=== PATIENT | female | born 1945 | race Caucasian/White ===

== ENCOUNTER 2017-03-12 11:24 | Day surgery (SDC) | payer MEDICARE, BC ==
[~2017-03-12 11:24] MED LIST: Buffered Lidocaine 0.9% SYRIN* 5 ML/SYR SYRINGE INTRADERM ONE; Famotidine IV* 10 MG/ML 2 ML (20 mg) IV ONE
[2017-03-12] MEDS ORDERED: Famotidine IV* 10 MG/ML 2 ML (20 mg) ONE (11:30)
[2017-03-12] MEDS ORDERED: Buffered Lidocaine 0.9% SYRIN* 5 ML/SYR SYRINGE ONE (11:30)
[2017-03-12] MEDS ORDERED: Midazolam* 1 MG/ML 2 ML VIAL (2 MG) ONE ×2 (13:25→13:47)
[2017-03-12] MEDS ORDERED: fentaNYL* 50 MCG/ML 2 ML VIAL (100 MCG VIAL) ONE (13:26)
[2017-03-12] MEDS ORDERED: Propofol* 10 MG/ML 20 ML BTL IV PUSH ONE ×2 (13:47→14:08)
[2017-03-12] MEDS ORDERED: Naloxone* 0.4 MG/ML 1 ML VIAL IV PRN (14:09)
[2017-03-12 15:03] VITALS: BP 142/65
--- NOTE | 2017-03-13 14:11 | PRO ---
DATE: 03/12/17 [facility] REFERRING PHYSICIAN: Dr. Adryan Carrasco * PROCEDURE: Upper gastrointestinal endoscopy and CLOtest and balloon dilation EG junction to 36 cm to 2 atmospheres and a 15 to 18 mm balloon. INDICATION: This 71-year-old woman comes in with a complaint of esophageal dysphagia. She also has trouble with pills, especially potassium and vitamins. It has gone on for many years. She does not spontaneously complain of acid indigestion or heart burn, and when questioned, there is some minimal irritation feeling, but she has never been on any acid blockade. She has been evaluated with anesthesia because of extraordinary anxiety. ENDOSCOPIST: Dr. Figueroa. EGD: Larynx - symmetric, limited views. Esophagus - easily entered. The mucosa is normal in the upper and mid esophagus and in the lower esophagus is a minimal dry mucoid or cakey material on it. There appears to be a little bit of edema from about 34 to 37. There was not any defined hiatal hernia until beyond 37 where there is a very short hiatal hernia. The EG junction does not show any erosions or Guerra's change. Stomach - Generally normal mucosa in the cardia, fundus, body, and antrum. No abnormalities are seen. Duodenum - normal up to 35 cm. Withdrawing to the EG junction, a balloon was placed in the gastric fundus 15 to 18 mm and then withdrawn across the EG junction and inflated to 1 atmosphere initially. This did create a slight rent at an 8 to 9 o'clock orientation with a little bit of bleeding. A 2 atmosphere inflation slightly extended that. It appeared indicated to stop at that time. There were no additional findings in the cricopharyngeal area. IMPRESSION: 1. Small hiatal hernia. 2. Esophagogastric junction stricture - uncertain contributions from gastroesophageal reflux disease versus salivary deficit versus caustic effect from inattention in swallowing, especially pills. She will be placed on omeprazole 20 mg q.a.m and review progress and options in a month. Changing to a liquid or a powder potassium formulation and for vitamins may be helpful as a caustic contribution of this is very likely. [id number]/[facility] #: [id number] MTDD
== END 2017-03-12 15:06 | disposition home or self-care (01) ==
LOC: OR 11:24
PROVIDERS: ATTEND Internal Medicine Gastroenterology
DX: K22.2 Esophageal obstruction (principal); K44.9 Diaphragmatic hernia without obstruction or gangrene; R13.14 Dysphagia, pharyngoesophageal phase; F41.8 Other specified anxiety disorders
CPT/HCPCS: 87077; J2250; J2704; J3010

== ENCOUNTER 2017-03-30 08:45 | Day surgery (SDC) | payer MEDICARE, BC ==
[~2017-03-30 08:45] MED LIST changes: +Acetaminophen TAB* 325 MG PO PRN; +Cyclopentolate 1% OPTH.SOL* 2 ML BTL ONE; -Famotidine IV* 10 MG/ML 2 ML (20 mg) IV ONE; +Ketorolac 0.5% OPHTH (NF) 0.5 % 5 ML BTL ONE; +Lidocaine 1% MPF* 2 ML VIAL ONE; +Neomycin/Polymy/Dex OPHTH.OIN* 3.5 GM ONE; +Phenylephrine 2.5% OPTH.SOL* 2 ML BTL ONE; +Tetracaine 0.5% OPTH.SOL 4 ML* 1 DROP BTL ONE; +Tropicamide 1% OPTH.SOL* BTL ONE
[2017-03-30] MEDS ORDERED: Midazolam* 1 MG/ML 2 ML VIAL (2 MG) ONE (09:43)
[2017-03-30] MEDS ORDERED: fentaNYL* 50 MCG/ML 2 ML VIAL (100 MCG VIAL) ONE (09:43)
[2017-03-30 10:45] VITALS: BP 155/81
--- NOTE | 2017-03-31 00:59 | OP ---
DATE OF OPERATION: 03/30/17 [facility] DATE OF : 47 SURGEON: Dr. Pierre Quiroga. EDUCATIONAL TECHNOLOGY SPECIALIST: None. ANESTHESIA: Topical with intravenous sedation. PRE-OP DIAGNOSIS: Cataract, left eye. POST-OP DIAGNOSIS: Cataract, left eye. OPERATIVE PROCEDURE: Phacoemulsification and cataract extraction with posterior chamber intraocular lens implant, left eye. COMPLICATIONS: None. BLOOD LOSS: None. DESCRIPTION OF PROCEDURE: The patient was brought to the operating room and received a small amount of intravenous sedation. A drop of Tetracaine was placed in her left eye. She was prepped and draped in the usual sterile fashion for ophthalmic surgery and attention was directed to the left eye where a speculum was placed. A paracentesis was created at the 5 o'clock position and 0.1 cc of 1 percent preservative-free Lidocaine was injected into the anterior chamber followed by DisCoVisc. The eye was digitally stabilized while a 2.75 mm keratome was used to create a triplanar clear corneal incision at the 3 o'clock position. A continuous curvilinear capsulorrhexis was created with a cystotome and Utrata forceps. BSS on a cannula was used to hydrodissect the lens from the capsule. Phacoemulsification was performed in a divide-and- conquer technique to create four fragments which were removed. Residual cortical material was removed with irrigation and aspiration. DisCoVisc was used to inflate the capsular bag and an [id number] 19.5 diopter lens was folded and inserted into the capsular bag. DisCoVisc was removed using irrigation and aspiration. BSS on a cannula was used to hydrate the corneal stroma and seal the wound. At the end of the case the pupil was round and the lens was centered. The eye was of normal pressure and the wound was water tight. The speculum was removed and topical Maxitrol ointment was placed on the surface of the eye. The eye was closed, patched and shielded and the patient was sent to the recovery room in stable condition with post operative instructions and follow-up appointment given. [id number]/[facility] #: [id number] DELICIA
== END 2017-03-30 10:53 | disposition home or self-care (01) ==
LOC: OREAST 08:45
PROVIDERS: ATTEND Ophthalmology
DX: H25.12 Age-related nuclear cataract, left eye (principal); I10 Essential (primary) hypertension; J45.909 Unspecified asthma, uncomplicated; E03.9 Hypothyroidism, unspecified; Z68.33 Body mass index [BMI] 33.0-33.9, adult; Z85.3 Personal history of malignant neoplasm of breast
CPT/HCPCS: A9270-GY; J2250; J3010; V2632

== ENCOUNTER 2018-04-23 00:02 | Emergency (ER) | payer MEDICARE, BC ==
--- NOTE | 2018-04-23 01:08 | ED ---
Lower Extremity - HPI Summary HPI Summary: A 72 y/o female brought in by CRISTIAN presents to [facility] with a chief complaint of left hip pain post fall on 04/20/18. At triage the patient rated her pain as a 6/10 in severity. The patient claims that before the night of 04/22/18 she was able to move around, but now she has limited mobility and her pain started when she leaned forward to move. She has a bruise on her left arm. She recently went to [facility] due to lightheadedness. She claims that she fell when she was going to the bathroom since she did not turn the lights on and hit her head, left arm and left hip. - History of Current Complaint Chief Complaint: EDHipPelvisInjury Stated Complaint: HIP PAIN Time Seen by Provider: 04/23/18 00:05 Hx Obtained From: Patient Hx Last Menstrual Period: post menopause Mechanism Of Injury: Fall From A Standing Position Onset of Pain: Immediate, Prior to Arrival Onset/Duration: Days Severity Initially: Mild Severity Currently: Moderate Pain Intensity: 6 Pain Scale Used: 0-10 Numeric Timing: Constant Location: Is Diffuse Character Of Pain: Unable To Describe Associated Signs And Symptoms: Positive: Bruising, Other - Fall hitting head, left arm and left hip Aggravating Factor(s): Nothing Alleviating Factor(s): Nothing - Allergies/Home Medications Allergies/Adverse Reactions: Allergies Allergy/AdvReac Type Severity Reaction Status Date / Time Penicillins Allergy Hives Verified 06/06/17 15:19 PMH/Surg Hx/FS Hx/Imm Hx Endocrine/Hematology History: Reports: Hx Thyroid Disease - Hypothyroid Denies: Hx Diabetes Cardiovascular History: Reports: Hx Hypercholesterolemia, Hx Hypertension Denies: Hx Pacemaker/ICD, Other Cardiovascular Problems/Disorders Respiratory History: Reports: Hx Asthma - on medication Denies: Other Respiratory Problems/Disorders GI History: Reports: Other GI Disorders - difficulty swallowing,certain foods cause difficulty eating, get stuck History: Denies: Hx Renal Disease, Other Problems/Disorders Musculoskeletal History: Reports: Hx Arthritis - osteoarthritis both hips and knees Denies: Hx Osteoporosis, Other Musculoskeletal History Sensory History: Reports: Hx Cataracts - Left eye, Hx Contacts or Glasses - Glasses Denies: Hx Hearing Aid Opthamlomology History: Reports: Hx Cataracts - Left eye, Hx Contacts or Glasses - Glasses Neurological History: Denies: Other Neuro Impairments/Disorders Psychiatric History: Reports: Hx Anxiety - ON MEDICATION, Hx Depression - ON MEDICATION Denies: Hx Panic Disorder - Cancer History Cancer Type, Location and Year: BREAST CANCER SURGERY-HAD SUREGERY AND RADIATION Hx Chemotherapy: Yes - 2011 Hx Radiation Therapy: Yes - Surgical History Surgery Procedure, Year, and Place: Lumpectomy with chemo and radiation - Rt BREAST 2011 [facility] [place] Tonsillectomy - 1971. CHOLECYSTECTOMY 1996 [facility] [place] Cataract - Right Eye 2009 [facility] [place]. Esophageal endoscopy 03/12/16 Hx Anesthesia Reactions: No Infectious Disease History: No Infectious Disease History: Denies: Hx Clostridium Difficile, Hx Hepatitis, Hx Human Immunodeficiency Virus (HIV), Hx of Known/Suspected MRSA, Hx Shingles, Hx Tuberculosis, Hx Known/ Suspected VRE, Hx Known/Suspected VRSA, History Other Infectious Disease, Traveled Outside the [place] in Last 30 Days - Family History Known Family History: Positive: Hypertension, Other - arthritis- mother - Social History Alcohol Use: None Substance Use Type: Reports: None Hx Tobacco Use: No Smoking Status (MU): Never Smoked Tobacco Have You Smoked in the Last Year: No Review of Systems Positive: Arthralgia - left hip pain, Myalgia - left arm pain Neurological: Other - positive: lightheadedness All Other Systems Reviewed And Are Negative: Yes Physical Exam - Summary Physical Exam Summary: Appearance: Well-appearing, Well-nourished, lying in bed comfortably Skin: Warm, dry, no obvious rash Eyes: sclera anicteric, no conjunctival pallor ENT: mucous membranes moist, pharynx appears normal Neck: Supple, nontender Respiratory: Clear to auscultation, no signs of respiratory distress Cardiovascular: Normal S1, S2. No murmurs. Normal distal pulses in tibial and radial bilaterally. Abdomen: Soft, nontender, normal active bowel sounds present Musculoskeletal: Head contusion left frontal temporal area with minimal swelling no laceration or abrasion, contusion left distal arm no tenderness swelling or deformity, left hip good ROM on rotation, pain left lower pelvic area near ischium, pelvis itself is stable. Neurological: A&Ox3, awake and alert, mentation is normal, speech is fluent and appropriate Psychiatric: affect is normal, does not appear anxious or depressed Triage Information Reviewed: Yes Vital Signs On Initial Exam: Initial Vitals Pulse Pulse Ox 95 96 04/23/18 00:07 04/23/18 00:07 Vital Signs Reviewed: Yes Diagnostics - Vital Signs Vital Signs Temp Pulse Resp BP Pulse Ox 04/23/18 00:10 98.7 F 74 20 193/95 99 04/23/18 00:08 99 193/95 96 04/23/18 00:07 95 96 - Laboratory Lab Statement: Any lab studies that have been ordered have been reviewed, and results considered in the medical decision making process. - CT pelvis CT Interpretation Completed By: Radiologist Summary of CT Findings: Osteopenia and moderate degenerative change without visualized fracture or. subluxation. In a small percentage of patients, MRI can document nondisplaced. fractures which are initially occult on CT. ED physician has reviewed this imaging report. Lower Extremity Course/Dx - Course Course Of Treatment: A 72 y/o female brought in by CRISTIAN presents to [facility] with a chief complaint of left hip pain post fall on 04/20/18. At triage the patient rated her pain as a 6/10 in severity. The patient claims that before the night of 04/22/18 she was able to move around, but now she has limited mobility and her pain started when she leaned forward to move. She has a bruise on her left arm. [facility]ness. She claims that she fell when she was going to the bathroom since she did not turn the lights on and hit her head, left arm and left hip. The physical exam revealed Head contusion left frontal temporal area with minimal swelling no laceration or abrasion, contusion left distal arm no tenderness swelling or deformity, left hip good ROM on rotation, pain left lower pelvic area near ischium, pelvis itself is stable. Pelvis CT impression: Osteopenia and moderate degenerative change without visualized fracture or. subluxation. In a small percentage of patients, MRI can document nondisplaced. fractures which are initially occult on CT. Upon re-eval the patient is able to ambulate. She will be discharged and is agreeable with this plan. - Diagnoses Provider Diagnoses: Low back pain Discharge - Sign-Out/Discharge Documenting (check all that apply): Patient Departure - DC Patient Received Moderate/Deep Sedation with Procedure: No - Discharge Plan Condition: Good Disposition: HOME Patient Education Materials: Low Back Strain (ED) Referrals: Anabel Smith MD [Primary Care Provider] - - Billing Disposition and Condition Condition: GOOD Disposition: Home - Attestation Statements Document Initiated by Jeancarlosibarley: Yes Documenting Scribe: Jarvis Álvarez Provider For Whom Inder is Documenting (Include Credential): Bradley Luna MD Scribe Attestation: IJarvis, scribed for Bradley Luna MD on 04/25/18 at 1611. Scribe Documentation Reviewed: Yes Provider Attestation: The documentation as recorded by the Jarvis beckett accurately reflects the service I personally performed and the decisions made by me, Bradley Luna MD Status of Scribe Document: Viewed
[2018-04-23 01:46] VITALS: BP 160/71
== END 2018-04-23 01:45 | disposition home or self-care (01) ==
LOC: ED 00:02
DX: M54.5 Low back pain (principal); M25.552 Pain in left hip; S00.83XA Contusion of other part of head, initial encounter; S50.12XA Contusion of left forearm, initial encounter; W18.30XA Fall on same level, unspecified, initial encounter; Y93.01 Activity, walking, marching and hiking; Y92.009 Unspecified place in unspecified non-institutional (private) residence as the place of occurrence of the external cause; M85.88 Other specified disorders of bone density and structure, other site; M16.12 Unilateral primary osteoarthritis, left hip; J45.909 Unspecified asthma, uncomplicated; F41.9 Anxiety disorder, unspecified; F32.9 Major depressive disorder, single episode, unspecified; Z88.0 Allergy status to penicillin
CPT/HCPCS: 72192; 99282

== ENCOUNTER 2019-02-18 07:10 | Emergency (ER) | payer MEDICARE, BC ==
[2019-02-18 07:23] VITALS: BP 174/91
--- NOTE | 2019-02-18 07:41 | UC ---
Ear Complaint HPI - HPI Summary HPI Summary: 73 yo woman with hx of hypertension and depression, with onset of right facial pain and swelling yesterday morning, without fever or chills of signs of systemic illness. This has become increasingly painful and has not responded to aspirin 975mg last taken about 8 hours ago. Last dental check 1 month ago with xrays, and given a clean bill of health. Hx of dry mouth secondary to meds, and known blocked submandibular gland over the past months. - History of Current Complaint Chief Complaint: UCEar Stated Complaint: EAR PAIN Time Seen by Provider: 02/18/19 07:30 Hx Obtained From: Patient Hx Last Menstrual Period: post menopause Onset/Duration: Gradual Onset, Lasting Days - 2 Severity Initially: Mild Severity Currently: Moderate Pain Intensity: 8 Alleviating Factors: OTC Meds Associated Signs/Symptoms: Positive: Swelling @ - pre auticular area - Allergies/Home Medications Allergies/Adverse Reactions: Allergies Allergy/AdvReac Type Severity Reaction Status Date / Time Penicillins Allergy Hives Verified 02/18/19 07:24 Home Medications: Home Medications Aspirin 975 mg PO ONCE PRN 02/18/19 [History Confirmed 02/18/19] Montelukast Sodium 1 tab PO DAILY 02/18/19 [History Confirmed 02/18/19] PMH/Surg Hx/FS Hx/Imm Hx Endocrine History: Hypothyroidism Cardiovascular History: Hypertension Respiratory History: Asthma - and allergies Psychological History: Depression Cancer History: Breast Cancer - Surgical History Surgical History: Yes Surgery Procedure, Year, and Place: Lumpectomy with chemo and radiation - Rt BREAST 2011 [facility] [place]. Tonsillectomy - 1971. CHOLECYSTECTOMY 1996 [facility] [place]. Cataract - Right Eye 2009 [facility] [place]. Esophageal endoscopy 03/12/16 - Family History Known Family History: Positive: Hypertension, Other - arthritis- mother - Social History Occupation: Retired Lives: With Family Alcohol Use: None Substance Use Type: None Smoking Status (MU): Never Smoked Tobacco Have You Smoked in the Last Year: No Review of Systems All Other Systems Reviewed And Are Negative: Yes Constitutional: Positive: Fatigue - poor sleep Skin: Positive: Negative Eyes: Negative: Blurred Vision, Diplopia, Photophobia ENT: Positive: Ear Ache Respiratory: Positive: Negative Cardiovascular: Positive: Negative Gastrointestinal: Positive: Negative Genitourinary: Positive: Negative Motor: Positive: Negative Neurovascular: Positive: Negative Musculoskeletal: Positive: Negative Neurological: Positive: Negative Psychological: Positive: Depressed - managed by psychiatrist in [place]. Is Patient Immunocompromised?: No Physical Exam Triage Information Reviewed: Yes Appearance: Ill-Appearing - appears fatigued and chronically depressed., Pain Distress - moderate Vital Signs: Initial Vital Signs Temp 98.2 F 02/18/19 07:18 Pulse 86 02/18/19 07:18 Resp 18 02/18/19 07:18 BP 174/91 02/18/19 07:18 Pulse Ox 96 02/18/19 07:18 Eye Exam: Other - No photophobia or lanie-orbital swelling; GALO, normal eye movements without pain or diplopia. Eyes: Positive: Conjunctiva Clear ENT: Positive: Pharynx normal, Other - Diffuse swelling in the right preauricular area, but not covering the angle of the jaw. No discrete mass, but right masseter area is firm without erythema or warmth. Dental: Positive: Other: - gum retraction, dry mouth.. Negative: Percussion Tenderness @, Gross Decay/Caries @ Neck: Positive: Supple, Nontender, Enlarged Nodes @ - anterior cervical on the right. Respiratory: Positive: Lungs clear, Normal breath sounds Cardiovascular: Positive: RRR, No Murmur Musculoskeletal Exam: Normal Neurological Exam: Normal Psychological Exam: Other - depressed mood Skin Exam: Normal Ear Complaint Course/Dx - Course Course Of Treatment: Discussed possibilities of parotid gland swelling versus dental infection or adenitis. Reviewed role of imaging --no CT or USS available here today--but at this time she declines ER visit. Will initiate treatment and she will go to the ER for follow up if swelling increases, she develops a fever, or does not respond to antibiotics and efforts to treat possible parotid gland stone. Reviewed [facility] review number [id number], has regular rx for zolpidem. - Differential Dx/Diagnosis Differential Diagnosis/HQI/PQRI: Cellulitis, Otitis Externa, TMJ Syndrome, Other - parotitis Provider Diagnosis: Parotitis, acute Discharge ED - Sign-Out/Discharge Documenting (check all that apply): Patient Departure All imaging exams completed and their final reports reviewed: No Studies - Discharge Plan Condition: Stable Disposition: HOME Prescriptions: Cephalexin CAP* [Keflex 500 CAP*] 500 mg PO TID #15 cap Hydrocodone/Acetaminophen [Hydrocodone/Acetaminophen 5-325 mg] 1 tab PO Q6H PRN #8 tab MDD 4 PRN Reason: Pain - Moderate Referrals: Anabel Smith MD [Primary Care Provider] - Additional Instructions: Your blood pressure is elevated today to 174/91.Please toake your medications once you return home. Begin use of cephalexin 500mg three times daily for possible infection in the parotid gland. Stimulate saliva flow by sucking on lemon candies or flavia, and drink a lot or water. Apply warm moiset heat to the right jaw area. You have a prescription for hydrocodone for pain control. You can use additional acetaminophen taking an additional 500mg every 6 hours for the next 2 days. Proceed to the emergency room if swelling or pain increases or is not controlled or if you develop a fever. Follow up with Dr. Smith on Wednesday. - Billing Disposition and Condition Condition: STABLE Disposition: Home
[2019-02-18] MEDS ORDERED: HYDROcodone/ACETAMIN 5-325 MG* 1 TAB PO ONE (07:53)
== END 2019-02-18 08:15 | disposition home or self-care (01) ==
LOC: UCEAST 07:10
DX: K11.21 Acute sialoadenitis (principal); R53.83 Other fatigue; I10 Essential (primary) hypertension; J45.909 Unspecified asthma, uncomplicated; F32.9 Major depressive disorder, single episode, unspecified; Z85.3 Personal history of malignant neoplasm of breast; Z92.3 Personal history of irradiation; Z92.21 Personal history of antineoplastic chemotherapy; Z88.0 Allergy status to penicillin
CPT/HCPCS: 99212; G0463

== ENCOUNTER 2019-02-20 12:57 | Emergency (ER) | payer MEDICARE, BC ==
--- NOTE | 2019-02-20 13:04 | UC ---
[facility] HPI - History of Current Complaint Stated Complaint: DENTAL Time Seen by Provider: 02/20/19 13:03 Hx Last Menstrual Period: post menopause - Allergies/Home Medications Allergies/Adverse Reactions: Allergies Allergy/AdvReac Type Severity Reaction Status Date / Time Penicillins Allergy Hives Verified 02/18/19 07:24 PMH/Surg Hx/FS Hx/Imm Hx - Additional Past Medical History Additional PMH: BRCA Endocrine History: Hypothyroidism Cardiovascular History: Hypertension Respiratory History: Asthma Psychological History: Anxiety, Depression - Surgical History Surgical History: Yes Surgery Procedure, Year, and Place: Lumpectomy with chemo and radiation - Rt BREAST 2011 [facility] [place]. Tonsillectomy - 1971. CHOLECYSTECTOMY 1996 [facility] [place]. Cataract - Right Eye 2009 [facility] [place]. Esophageal endoscopy 03/12/16 - Family History Known Family History: Positive: Hypertension, Other - arthritis- mother - Social History Lives: With Family Alcohol Use: None Substance Use Type: None Smoking Status (MU): Never Smoked Tobacco Have You Smoked in the Last Year: No Review of Systems All Other Systems Reviewed And Are Negative: No Constitutional: Positive: Negative Skin: Positive: Negative ENT: Positive: Dental Pain Respiratory: Positive: Negative Cardiovascular: Positive: Negative Neurological: Positive: Negative Psychological: Positive: Negative Physical Exam - Summary Physical Exam Summary: GENERAL: NAD. WDWN. No pain distress. SKIN: No rashes, sores, lesions, or open wounds. HEENT: Head: AT/NC Eyes: EOM intact. Conjunctiva clear without inflammation or discharge. Ears: Hearing grossly normal. TMs intact, no bulging, erythema, or edema. Nose: Nasal mucosa pink and moist. NTTP maxillary and frontal sinus. Throat: Posterior oropharynx without exudates, erythema, or tonsillar enlargement. Uvula midline. NECK: Supple. Nontender. No lymphadenopathy. CHEST: CTAB. No accessory muscle use. Breathing comfortably and in no distress. CV: RRR. Pulses intact. Cap refill <2seconds NEURO: Alert. PSYCH: Age appropriate behavior. Triage Information Reviewed: Yes Vital Signs Reviewed: Yes Discharge ED - Sign-Out/Discharge Documenting (check all that apply): Patient Departure All imaging exams completed and their final reports reviewed: No Studies - Discharge Plan Condition: Stable Disposition: HOME Referrals: Anabel Smith MD [Primary Care Provider] - - Billing Disposition and Condition Condition: STABLE Disposition: Home
[2019-02-20 13:07] VITALS: BP 157/95
--- NOTE | 2019-02-20 13:40 | UC ---
UC General HPI - HPI Summary HPI Summary: 73-year-old comes in with a chief complaint of right facial pain. This started 4 days ago. Pain is worst near the right parotid gland and TMJ. It does radiate into the right ear and out to the jaw the right side. No rash no fevers. Patient reports she's had a recent dental appointment and had no cavities. Patient has allergy to penicillin and was started on cephalexin 2 days ago when seen here in clinic. Also has been using hydrocodone. The pain is mildly improved from 2 days ago. It does hurt to try to open her mouth and she does have limited jaw opening capabilities. - History of Current Complaint Chief Complaint: UCGeneralIllness Stated Complaint: DENTAL Time Seen by Provider: 02/20/19 13:03 Hx Last Menstrual Period: post menopause Pain Intensity: 7 - Allergy/Home Medications Allergies/Adverse Reactions: Allergies Allergy/AdvReac Type Severity Reaction Status Date / Time Penicillins Allergy Hives Verified 02/20/19 13:07 PMH/Surg Hx/FS Hx/Imm Hx Previously Healthy: Yes Endocrine History: Hypothyroidism Cardiovascular History: Hypertension Respiratory History: Asthma - Surgical History Surgical History: Yes Surgery Procedure, Year, and Place: Lumpect[place] with chemo and [place] [facility] [place]illect[place] 1970. [place] [facility] [place] - [place] [facility] [place]oscopy 03/12/16 - Family History Known Family History: Positive: Hypertension, Other - arthritis- mother - Social History Alcohol Use: None Substance Use Type: None Smoking Status (MU): Never Smoked Tobacco Have You Smoked in the Last Year: No Review of Systems All Other Systems Reviewed And Are Negative: Yes Constitutional: Positive: Negative Skin: Positive: Negative Eyes: Positive: Negative ENT: Positive: Other - SEE HPI Respiratory: Positive: Negative Cardiovascular: Positive: Negative Gastrointestinal: Positive: Negative Motor: Positive: Decreased ROM - SEE HPI Neurovascular: Positive: Negative Musculoskeletal: Positive: Decreased ROM - SEE HPI Neurological: Positive: Negative Psychological: Positive: Negative Is Patient Immunocompromised?: No Physical Exam Triage Information Reviewed: Yes Appearance: Well-Appearing, Well-Nourished, Pain Distress - MILD WITH EXAM AND ROM OF JAW Vital Signs: Initial Vital Signs Temp 98.6 F 02/20/19 13:00 Pulse 84 02/20/19 13:00 Resp 18 02/20/19 13:00 BP 157/95 02/20/19 13:00 Pulse Ox 96 02/20/19 13:00 Vital Signs Reviewed: Yes Eye Exam: Normal Eyes: Positive: Conjunctiva Clear ENT: Positive: Other - Right TM is partially obscured by cerumen. What I can see appears normal. No apparent narrowing or inflammation of the ear canal on the right. There is mild tenderness to palpation of the tragus on the right. No rash seen on the face. The right parotid gland and right TMJ are tender to palpation. Patient does have limited range of motion with mouth opening. No tenderness under the jaw. No obvious cavities. Neck: Positive: Supple Respiratory: Positive: No respiratory distress Musculoskeletal: Positive: Strength Intact Neurological: Positive: Alert Psychological: Positive: Age Appropriate Behavior Skin Exam: Normal - NO RASH Course/Dx - Course Course Of Treatment: Due to the continued facial pain I recommended further evaluation at ENT. I was able to get an appointment for the patient with Dr. Potts at 3:15 this afternoon. - Diagnoses Provider Diagnosis: Right sided facial pain Discharge ED - Sign-Out/Discharge Documenting (check all that apply): Patient Departure All imaging exams completed and their final reports reviewed: No Studies - Discharge Plan Condition: Stable Disposition: HOME Referrals: Anabel Smith MD [Primary Care Provider] - Willian Potts MD [Medical Doctor] - Additional Instructions: FOLLOW UP WITH DR POTTS, ENT, TODAY AT 3:15 FOR YOUR RIGHT SIDED FACIAL PAIN. GET REEVALUATED SOONER IF NOT IMPROVED OR WORSE OR ANY QUESTIONS OR CONCERNS. - Billing Disposition and Condition Condition: STABLE Disposition: Home
== END 2019-02-20 13:46 | disposition home or self-care (01) ==
LOC: UCEAST 12:57
DX: R51 Headache (principal); I10 Essential (primary) hypertension; J45.909 Unspecified asthma, uncomplicated; Z88.0 Allergy status to penicillin
CPT/HCPCS: 99212; G0463

== ENCOUNTER 2021-01-21 07:58 | Inpatient (IN) ==
[~2021-01-21 07:58] MED LIST changes: -Acetaminophen TAB* 325 MG PO PRN; -Buffered Lidocaine 0.9% SYRIN* 5 ML/SYR SYRINGE INTRADERM ONE; +Buffered Lidocaine 1% SYRIN 1 ml INTRADERM ONE; -Cyclopentolate 1% OPTH.SOL* 2 ML BTL ONE; -Ketorolac 0.5% OPHTH (NF) 0.5 % 5 ML BTL ONE; +Lactated Ringers 1000 ml BAG 1,000 ML IV SCH; -Lidocaine 1% MPF* 2 ML VIAL ONE; -Neomycin/Polymy/Dex OPHTH.OIN* 3.5 GM ONE; -Phenylephrine 2.5% OPTH.SOL* 2 ML BTL ONE; -Tetracaine 0.5% OPTH.SOL 4 ML* 1 DROP BTL ONE; -Tropicamide 1% OPTH.SOL* BTL ONE
[2021-01-21] MEDS ORDERED: Clindamycin 900 MG/D5W BAG 900 MG/50 ML BAG IVPB ONE (08:21)
[2021-01-21] MEDS ORDERED: Lidocaine 2% PF 5 ML VIAL ONE (08:57)
[2021-01-21] MEDS ORDERED: Phenylephrine IV 10 MG/ML 1 ml VIAL ONE (08:57)
[2021-01-21] MEDS ORDERED: ROPIVACAINE 5 MG/ML 30 ML BTL (0.5%) ONE ×2 (09:06→09:17)
[2021-01-21] MEDS ORDERED: fentaNYL 100 mcg/2 ml 50 MCG/ML VIAL ONE (09:12)
[2021-01-21] MEDS ORDERED: Midazolam 2 mg/2 ml VIAL 1 mg/ml 2 ml VIAL (2 mg) ONE (09:12)
[2021-01-21] MEDS ORDERED: Ondansetron 4 mg VIAL 2 MG/ML 2 ml VIAL ONE (10:23)
[2021-01-21] MEDS ORDERED: Dexamethasone IV 4 MG/ML VIAL 1 ml VIAL ONE (10:23)
[2021-01-21] MEDS ORDERED: Ondansetron 4 mg VIAL 2 MG/ML 2 ml VIAL IV PRN (10:57)
[2021-01-21] MEDS ORDERED: Naloxone 0.4 mg VIAL 0.4 mg/ml 1 ml VIAL IV PRN (10:57)
[2021-01-21] MEDS ORDERED: fentaNYL 100 mcg/2 ml 50 MCG/ML VIAL IV PRN (10:57)
[2021-01-21] MEDS ORDERED: Morphine 2 MG/ML SYRINGE IV PRN (11:02)
[2021-01-21] MEDS ORDERED: Lactulose 30 ml UDC PO PRN (11:02)
[2021-01-21] MEDS ORDERED: diPHENhydraMINE 25 mg TAB PO PRN (11:02)
[2021-01-21] MEDS ORDERED: Magnesium Hydroxide LIQ 30 ML UDC PO PRN (11:02)
[2021-01-21] MEDS ORDERED: diPHENhydraMINE IV 50 MG/ML 1 ml VIAL (BENADRYL) IV PRN (11:02)
[2021-01-21] MEDS ORDERED: Propofol 10 MG/ML 20 ML BTL ONE ×2 (11:04→11:42)
[2021-01-21] MEDS ORDERED: Metoclopramide 5 MG/ML VIAL (10 mg) IV PRN (11:10)
[2021-01-21] MEDS ORDERED: Lactated Ringers 1000 ml BAG 1,000 ML IV SCH (12:00)
[2021-01-21] MEDS ORDERED: Clindamycin 600 MG/D5W BAG 600 MG/50 ML BAG IV SCH (16:00)
[2021-01-21 16:30] VITALS: BP 146/64
[2021-01-21] MEDS ORDERED: Magnesium Hydroxide LIQ 30 ML UDC PO SCH (21:00)
[2021-01-21] MEDS ORDERED: Potassium Chlor 10 meq TAB PO SCH (21:00)
[2021-01-22] MEDS ORDERED: Clindamycin 600 MG/NS BAG(*) 600 MG/50 ML BAG IV ONE (08:00)
[2021-01-22] MEDS ORDERED: Vitamin THERAPEUTIC TAB PO SCH (09:00)
== END 2021-01-21 18:40 | disposition home or self-care (01) | DRG 470 ==
LOC: AA 07:58 → SSU 13:56
PROVIDERS: ADMIT Orthopaedic Surgery Adult Reconstructive Orthopaedic Surgery; ATTEND Orthopaedic Surgery Adult Reconstructive Orthopaedic Surgery